=== PATIENT | female | born 1955 | race Caucasian/White ===

== ENCOUNTER → 2021-03-18 10:28 | Outpatient (CLI) | payer MEDICARE, OTHER, SELFPAY ==
--- NOTE | 2021-03-18 | DI.RAD.S_ITS ---
PROCEDURE: XR BONE LENGTH SCANOGRAM INDICATIONS: Unequal limb length (acquired), unspecified site TECHNIQUE: A single frontal standing view of both lower extremities acquired, with measuring ruler situated between the legs. COMPARISON: None. FINDINGS: Right: Total leg length is 75.9 cm. Left: Total leg length is 75.0 cm. IMPRESSION: Leg length as above. Dictated by: Miguel Ángel Reynolds M.D. on 03/18/2021 at 17:44 Approved by: Miguel Ángel Reynolds M.D. on 03/18/2021 at 17:48
== END ==
PROVIDERS: PCP Family Medicine; Referring Provider Podiatrist; Visit Provider Podiatrist
DX: M21.70 Unequal limb length (acquired), unspecified site (principal)
CPT/HCPCS: 77073